=== PATIENT | female | born 1965 | race African-American/Black ===

== ENCOUNTER 2024-03-22 00:42 | Emergency (ER) | payer BC ==
[~2024-03-22] VITALS: Ht 154.9 cm; Wt 73.0 kg
[2024-03-22 00:55] VITALS: TEMP 37.2; O2SAT 100
[2024-03-22 00:58] VITALS: O2SAT 97
[2024-03-22 02:45] VITALS: BP 145/59; PULSE 89; RESP 16
[2024-03-22] MEDS: ACETAMINOPHEN WITH CODEINE 300/30MG TABLET PO ONE (02:45)
[2024-03-22] MEDS ORDERED: COLC0.6C3 MT (03:02)
[2024-03-22] MEDS ORDERED: T3 PO (03:03)
[2024-03-22] MEDS ORDERED: P20 MT (03:12)
== END 2024-03-22 03:33 | disposition home or self-care (01) ==
LOC: ER 00:42
DX: M10.071 Idiopathic gout, right ankle and foot (principal); I10 Essential (primary) hypertension; E11.9 Type 2 diabetes mellitus without complications; Z79.899 Other long term (current) drug therapy; Z98.890 Other specified postprocedural states
CPT/HCPCS: 99283

== ENCOUNTER 2024-05-29 17:27 | Emergency (ER) | payer BC ==
[~2024-05-29] VITALS: Ht 154.9 cm; Wt 75.3 kg
[~2024-05-29 17:27] MED LIST: COLC0.6C3 MT; P20 MT; T3 PO
[2024-05-29 17:31] VITALS: O2SAT 99
[2024-05-29] MEDS: TRANEXAMIC ACID 1,000MG/10ML TP ONE (21:00)
[2024-05-29] MEDS: OXYMETAZOLINE HCL NASAL SPRAY 15ML BOTHNSTRLS SCH (21:01)
[2024-05-29 21:49] VITALS: BP 134/72; PULSE 81; RESP 10; TEMP 37.1; O2SAT 97
== END 2024-05-29 22:17 | disposition home or self-care (01) ==
LOC: ER 17:27
DX: R04.0 Epistaxis (principal); E11.9 Type 2 diabetes mellitus without complications; I10 Essential (primary) hypertension; Z79.899 Other long term (current) drug therapy; Z98.890 Other specified postprocedural states
CPT/HCPCS: 99283; Z7610 ×3; A4606